=== PATIENT | male | born 1965 | race Caucasian/White ===

== ENCOUNTER 2024-09-21 06:17 | Day surgery (SDC) | payer OTHER, SELFPAY | END 2024-09-21 11:49 | disposition home or self-care (01) | LOC: GI 06:17 | PROVIDERS: ATTENDING PHYSICIAN Surgery | DX: Z12.11 Encounter for screening for malignant neoplasm of colon (principal); K57.30 Diverticulosis of large intestine without perforation or abscess without bleeding; K64.9 Unspecified hemorrhoids | CPT/HCPCS: G0121 ==